=== PATIENT | male | born 1965 | race Two or more races ===

== ENCOUNTER → 2018-02-07 | Outpatient (CLI) | payer OTHER | END | disposition home or self-care (01) | LOC: HKI 10:28 | DX: S86.912D Strain of unspecified muscle(s) and tendon(s) at lower leg level, left leg, subsequent encounter (principal); X58.XXXD Exposure to other specified factors, subsequent encounter; I10 Essential (primary) hypertension; E78.5 Hyperlipidemia, unspecified | CPT/HCPCS: Z7500 ==

== ENCOUNTER 2018-04-25 08:50 | Day surgery (SDC) | payer OTHER ==
[2018-04-25] MEDS ORDERED: DIPHENHYDRAMINE 50 MG INJ (11:19)
[2018-04-25] MEDS ORDERED: MIDAZOLAM 1 MG/ML 2 ML INJ ×3 (11:35)
[2018-04-25] MEDS ORDERED: FENTAnyl 50 MCG/ML VIAL (11:35)
== END 2018-04-25 13:20 | disposition home or self-care (01) ==
LOC: GIL 08:50
DX: Z12.11 Encounter for screening for malignant neoplasm of colon (principal)
CPT/HCPCS: 45378

== ENCOUNTER 2018-12-14 12:35 | Day surgery (SDC) | payer OTHER ==
[2018-12-14] MEDS ORDERED: FENTAnyl 50 MCG/ML VIAL (14:51)
[2018-12-14] MEDS ORDERED: PROPOFOL 20 ML ×3 (14:51)
[2018-12-14] MEDS ORDERED: LIDOCAINE 2% (SDV) 5 ML INJ (14:51)
[2018-12-14] MEDS ORDERED: LIDOCAINE 4% SOLUTION 50 ML BTL (14:51)
[2018-12-14] MEDS ORDERED: MIDAZOLAM 1 MG/ML 2 ML INJ (14:51)
== END 2018-12-14 15:29 | disposition home or self-care (01) ==
LOC: GIL 12:35
DX: K31.7 Polyp of stomach and duodenum (principal); K29.30 Chronic superficial gastritis without bleeding; I10 Essential (primary) hypertension; J45.909 Unspecified asthma, uncomplicated
CPT/HCPCS: 43239; 88305; 88312